=== PATIENT | female | born 1995 | race Caucasian/White ===

== ENCOUNTER 2021-12-16 23:13 | Emergency (ER) | payer BC, MEDICAID ==
[~2021-12-16] VITALS: Ht 154.9 cm; Wt 97.5 kg
[2021-12-16 23:13] VITALS: BP 147/87
== END 2021-12-17 02:07 | disposition left against medical advice (07) ==
LOC: ER 23:13
DX: H92.02 Otalgia, left ear (principal); Z53.21 Procedure and treatment not carried out due to patient leaving prior to being seen by health care provider